=== PATIENT | male | born 1945 | race Caucasian/White ===

== ENCOUNTER 2016-09-10 23:29 | Emergency (ER) | payer OTHER ==
[2016-09-10 23:44] VITALS: TEMP 99.1
[2016-09-11] MEDS ORDERED: DOXYCYCLINE 100 MG TAB PO SCH (00:15)
[2016-09-11] MEDS ORDERED: DOXYCYCLINE 100 MG TAB ONE (00:20)
[2016-09-11 00:27] LABS: BASOPHILS % (AUTO) 1 % (0-3); EOSINOPHILS % (AUTO) 2 % (0-9); HEMATOCRIT 44 % (39-53); MEAN CORPUSCULAR HGB CONC 33.5 gm/dl (32.0-36.0); MEAN CORPUSCULAR VOLUME 83 fL (80-100); MONOCYTES % (AUTO) 7.3 % (0-12); NEUTROPHILS % (AUTO) 79.3 % (37-80)
[2016-09-11 00:36] LABS: CALCIUM 9.3 mg/dl (8.5-10.1)
[2016-09-11 00:42] LABS: POTASSIUM 4.1 mMol/L (3.5-5.1)
[2016-09-11 01:16] VITALS: BP 155/88; PULSE 77; RESP 24; O2SAT 94
== END 2016-09-11 01:10 | disposition home or self-care (01) | DRG 194 ==
LOC: ED 23:29
DX: J18.9 Pneumonia, unspecified organism (principal); L03.116 Cellulitis of left lower limb
CPT/HCPCS: 11100; 36415; 71010; 80048; 85025; 87070; 87077; 87186; 99284; 99285; A6232

== ENCOUNTER 2017-06-21 22:46 | Emergency (ER) | payer OTHER ==
[2017-06-21 22:59] VITALS: TEMP 98
[2017-06-21] MEDS ORDERED: HYDRALAZINE HYDROCHLORIDE 20 MG/ML SOL IV PRN (23:24)
[2017-06-21] MEDS ORDERED: HYDRALAZINE HYDROCHLORIDE 20 MG/ML SOL ONE (23:25)
[2017-06-22] MEDS ORDERED: APAP/OXYCODONE 325/5 TAB PO ONE (00:53)
[2017-06-22] MEDS ORDERED: APAP/OXYCODONE 325/5 TAB ONE (01:00)
[2017-06-22 01:06] VITALS: RESP 18
[2017-06-22 02:24] VITALS: BP 140/81; PULSE 83; O2SAT 95
== END 2017-06-22 01:51 | disposition home health service (06) | DRG 552 ==
LOC: ED 22:46
DX: M50.21 Other cervical disc displacement, high cervical region (principal); M50.221 Other cervical disc displacement at C4-C5 level
CPT/HCPCS: 96374; 99283; J0360; A9270-GY

== ENCOUNTER 2018-10-24 13:36 | Emergency (ER) | payer OTHER ==
[2018-10-24 14:06] VITALS: TEMP 97.6
[2018-10-24] MEDS ORDERED: LEVOFLOXACIN 25 MG/ML 500 MG in SODIUM CHLORIDE 0.9% 100 ML 100 ML IV ONE (15:40)
[2018-10-24] MEDS ORDERED: SODIUM CHLORIDE 0.9% 500 ML SOL IV SCH (15:45)
[2018-10-24] MEDS ORDERED: LEVOFLOXACIN 25 MG/ML SOL IV ONE (15:50)
[2018-10-24 18:58] VITALS: BP 142/78; PULSE 80; RESP 18; O2SAT 96
== END 2018-10-24 18:48 | disposition home or self-care (01) | DRG 195 ==
LOC: ED 13:36
DX: J18.1 Lobar pneumonia, unspecified organism (principal)
CPT/HCPCS: 36415; 71045; 80048; 85025; 99285; J1956

== ENCOUNTER 2018-10-24 23:14 | Inpatient (IN) | payer OTHER ==
[2018-10-24 14:48] LABS: BASOPHILS % (AUTO) 0 % (0-3); EOSINOPHILS % (AUTO) 1 % (0-9); HEMATOCRIT 46 % (39-53); HEMOGLOBIN 14.8 gm/dl (13.5-17.7); LYMPHOCYTES % (AUTO) 6.6 % (10-50); MEAN CORPUSCULAR HEMOGLOBIN 27.3 pg (27.0-32.0); MEAN CORPUSCULAR HGB CONC 31.9 gm/dl (32.0-36.0); MEAN CORPUSCULAR VOLUME 85 fL (80-100); MONOCYTES % (AUTO) 5.8 % (0-12); NEUTROPHILS % (AUTO) 86.6 % (37-80)
[2018-10-24 14:55] LABS: CALCIUM 9.2 mg/dl (8.5-10.1); CREATININE 0.71 mg/dl (0.80-1.30)
[2018-10-24 15:03] LABS: CARBON DIOXIDE 32.2 mEq/L (21-32)
[2018-10-24] MEDS ORDERED: ALBUTEROL NEB SOL 2.5MG/3ML 1 VIAL SOL ONE (23:41)
[2018-10-24] MEDS ORDERED: ALBUTEROL NEB SOL 2.5MG/3ML 1 VIAL SOL NEB ONE (23:43)
[2018-10-24] MEDS ORDERED: GUAIFENESIN 200 MG/10 ML SOL PO ONE (23:43)
[2018-10-24] MEDS ORDERED: CODEINE/GUAIFENESIN 5 ML ML ONE (23:46)
[2018-10-24] MEDS ORDERED: ALBUTEROL/IPRATROPIUM 1 VIAL SOL INH ONE (23:57)
[2018-10-24] MEDS ORDERED: ALBUTEROL/IPRATROPIUM 1 VIAL SOL ONE (23:57)
[2018-10-25] MEDS: SODIUM CHLORIDE 0.9% 1000ML 1,000 ML IV SCH ×2 (00:20→01:54)
[2018-10-25] MEDS ORDERED: ACETAMINOPHEN 500 MG 500 MG TAB PO PRN (01:05)
[2018-10-25] MEDS ORDERED: HYDROCHLOROTHIAZIDE 25 MG TAB PO PRN ×2 (01:05→09:30)
[2018-10-25] MEDS ORDERED: CLONAZEPAM 0.5 MG TAB PO PRN (01:05)
[2018-10-25] MEDS ORDERED: FLUTICASONE PROPIONATE INH PRN (01:05)
[2018-10-25] MEDS ORDERED: HYDROCORTISONE 1% CREAM 1 APPL CRE TOP PRN (01:05)
[2018-10-25] MEDS ORDERED: BISACODYL 10 MG SUP PR PRN (01:05)
[2018-10-25] MEDS ORDERED: APAP/HYDROCODONE 1 EACH TABLET PO PRN (01:05)
[2018-10-25] MEDS ORDERED: ALBUTEROL NEB SOL 2.5MG/3ML 1 VIAL SOL NEB PRN (01:11)
[2018-10-25] MEDS: MELATONIN 3 MG TAB PO SCH ×2 (04:28→21:42)
[2018-10-25 07:44] LABS: CALCIUM 8.7 mg/dl (8.5-10.1); CARBON DIOXIDE 29.7 mEq/L (21-32); CREATININE 0.76 mg/dl (0.80-1.30)
[2018-10-25 07:45] LABS: BASOPHILS % (AUTO) 0 % (0-3); EOSINOPHILS % (AUTO) 0 % (0-9); HEMATOCRIT 43 % (39-53); MEAN CORPUSCULAR HEMOGLOBIN 27.9 pg (27.0-32.0); MEAN CORPUSCULAR HGB CONC 32.5 gm/dl (32.0-36.0); MEAN CORPUSCULAR VOLUME 86 fL (80-100); MONOCYTES % (AUTO) 4.9 % (0-12); NEUTROPHILS % (AUTO) 91.8 % (37-80)
[2018-10-25] MEDS ORDERED: LEVOFLOXACIN 500 MG TAB PO SCH (09:00)
[2018-10-25] MEDS ORDERED: CYANOCOBALAMIN 1000 MCG PO SCH (09:00)
[2018-10-25] MEDS ORDERED: [UNRECOGNIZED DRUG - OTHER] PO SCH (09:00)
[2018-10-25] MEDS ORDERED: CETIRIZINE HYDROCHLORIDE 10 MG TAB PO SCH (09:00)
[2018-10-25] MEDS ORDERED: CHLORHEXIDINE GLUCONATE TP SCH (09:00)
[2018-10-25] MEDS ORDERED: FOLIC ACID PO SCH (09:00)
[2018-10-25] MEDS ORDERED: COENZYME Q10 100 MG PO SCH (09:00)
[2018-10-25] MEDS ORDERED: FOLIC ACID 1 MG TAB PO SCH (09:30)
[2018-10-25] MEDS ORDERED: FLUTICASONE PROPIONATE SPR NAS PRN (09:45)
[2018-10-25] MEDS: DOCUSATE SODIUM 100 MG SGL PO SCH ×2 (09:46→21:40)
[2018-10-25] MEDS: MAGNESIUM OXIDE 400 MG TAB PO SCH ×2 (09:47→21:42)
[2018-10-25] MEDS: CHOLECALCIFEROL 1,000 IU (25 MCG) TAB PO SCH ×4 (09:48→21:42)
[2018-10-25] MEDS: UBIDECARENONE 100 MG CAPSULE PO SCH ×2 (09:48→15:00)
[2018-10-25] MEDS: CYANOCOBALAMIN 1000 MCG TAB PO SCH ×2 (09:49→14:59)
[2018-10-25] MEDS: ASPIRIN EC 81 MG PO SCH ×2 (10:53→21:42)
[2018-10-25] MEDS ORDERED: POTASSIUM CHLORIDE 2 MEQ/ML 40 MEQ, LIDOCAINE HCL 1% MDV 2 ML in SODIUM CHLORIDE 0.9% 5... IV ONE (11:37)
[2018-10-25] MEDS: ALBUTEROL/IPRATROPIUM 1 VIAL SOL INH SCH ×3 (12:52→20:40)
[2018-10-25] MEDS ORDERED: LIDOCAINE HCL 1% MPF 30 SOL ONE (13:12)
[2018-10-25] MEDS ORDERED: POTASSIUM CHLORIDE 2 MEQ/ML SOL IV ONE (13:12)
[2018-10-25] MEDS ORDERED: PIPERACILLIN/TAZOBACT 3.375 GM 3.375 GM in SODIUM CHLORIDE 0.9% 100 ML 100 ML IV ONE (20:47)
[2018-10-25] MEDS ORDERED: SOLUMEDROL 125 MG/2 ML 125 MG/2 ML PDS IV SCH (21:00)
[2018-10-25] MEDS ORDERED: GABAPENTIN 100 MG CAP PO SCH (21:00)
[2018-10-25] MEDS ORDERED: PIPERACILLIN/TAZOBACT 3.375 GM PDS IV ONE (21:09)
[2018-10-25 21:18] LABS: ABG PH 7.34 (7.35-7.45)
[2018-10-25 21:21] LABS: LACTIC ACID 0.8 mMol/L (0.0-2.0)
[2018-10-25 21:23] LABS: BASOPHILS % (AUTO) 0 % (0-3); EOSINOPHILS % (AUTO) 0 % (0-9); HEMATOCRIT 43 % (39-53); HEMOGLOBIN 14.2 gm/dl (13.5-17.7); LYMPHOCYTES % (AUTO) 4.2 % (10-50); MEAN CORPUSCULAR HEMOGLOBIN 27.8 pg (27.0-32.0); MEAN CORPUSCULAR HGB CONC 33.1 gm/dl (32.0-36.0); MEAN CORPUSCULAR VOLUME 84 fL (80-100); MONOCYTES % (AUTO) 4.2 % (0-12); NEUTROPHILS % (AUTO) 91.2 % (37-80)
[2018-10-25 21:36] LABS: BLOOD UREA NITROGEN 15 mg/dl (7-18); CALCIUM 8.5 mg/dl (8.5-10.1); CARBON DIOXIDE 26.6 mEq/L (21-32); CHLORIDE 90 mMol/L (98-107); CREATININE 0.69 mg/dl (0.80-1.30); GLUCOSE 149 mg/dl (74-106); TROP I < 0.017 ng/ml (0.000-0.056)
[2018-10-25 22:55] VITALS: TEMP 98.1
[2018-10-25 23:20] VITALS: BP 113/73; PULSE 69; RESP 22; O2SAT 93
[2018-10-26] MEDS ORDERED: LEVOFLOXACIN 25 MG/ML 500 MG in SODIUM CHLORIDE 0.9% 100 ML 100 ML IV SCH (09:00)
== END 2018-10-25 22:15 | disposition short-term general hospital (02) | DRG 195 ==
LOC: ED 23:14 → ACUTE CARE 10-25 00:28
PROVIDERS: ADMIT Family Medicine; ATTEND Family Medicine
DX: J18.1 Lobar pneumonia, unspecified organism (principal); R09.89 Other specified symptoms and signs involving the circulatory and respiratory systems; Z79.899 Other long term (current) drug therapy; R06.02 Shortness of breath
CPT/HCPCS: 36415; 71045; 80048; 82803; 83880; 84484; 85025; 87040; 87070; 87205; 93012; 94150; 94640; 94660; 94669; 96365; 96366; 99236; 99283; 99284; 99285; J1956; J2543; J2930; J3480; J7613; A9270-GY; J2001